=== PATIENT | male | born 1960 | race Caucasian/White ===

== ENCOUNTER 2018-10-05 11:14 | Emergency (ER) | payer OTHER ==
[2018-10-05 11:19] VITALS: BP 144/76; PULSE 78; RESP 18; TEMP 98.2
[2018-10-05] MEDS ORDERED: CIPROFLOXACIN-DEXAMETH 0.3-0.1% DROPS 7.5 ML BTL RIGHT EAR STA (11:54)
--- NOTE | 2018-10-05 11:57 | ED ---
ENT HPI - General Chief complaint: ENT Stated complaint: bleeding from rt ear Time Seen by Provider: 10/05/18 11:29 Source: patient, RN notes reviewed Mode of arrival: ambulatory Limitations: no limitations - History of Present Illness Initial comments: [id number] male presents emergency Department chief complaint of bleeding from right ear canal. Patient states his started yesterday was seen at [facility] and was advised that started bleeding again to come to [facility] for hearing. Patient states he has swab soaps morning. He states it they cauterized his ear canals silver nitrate. He states it is sore now. He was not given any eardrops for this. Patient denies any headache, dizziness, fever or chills. Patient did have recent URI symptoms. - Related Data Allergies Allergy/AdvReac Type Severity Reaction Status Date / Time No Known Allergies Allergy Verified 10/05/18 11:19 Review of Systems ROS Statement: Those systems with pertinent positive or pertinent negative responses have been documented in the HPI. ROS Other: All systems not noted in ROS Statement are negative. Past Medical History Past Medical History: Atrial Fibrillation, Asthma, COPD, Renal Disease Additional Past Medical History / Comment(s): chronic pain History of Any Multi-Drug Resistant Organisms: None Reported Past Surgical History: Appendectomy, Orthopedic Surgery, Tonsillectomy Past Psychological History: No Psychological Hx Reported Smoking Status: Current every day smoker Past Alcohol Use History: Rare Past Drug Use History: Marijuana General Exam Limitations: no limitations General appearance: alert, in no apparent distress Head exam: Present: atraumatic, normocephalic, normal inspection Eye exam: Present: normal appearance, PERRL, EOMI. Absent: scleral icterus, conjunctival injection, periorbital swelling ENT exam: Present: normal oropharynx, mucous membranes moist, TM's normal bilaterally. Absent: normal external ear exam (Right ear canal is swollen, exudates and dry blood noted) Neck exam: Present: normal inspection, full ROM. Absent: tenderness, meningismus, lymphadenopathy Respiratory exam: Present: normal lung sounds bilaterally. Absent: respiratory distress, wheezes, rales, rhonchi, stridor Cardiovascular Exam: Present: regular rate, normal rhythm, normal heart sounds. Absent: systolic murmur, diastolic murmur, rubs, gallop, clicks Course Vital Signs 10/05/18 11:17 Temperature 98.2 F Pulse Rate 78 Respiratory 18 Rate Blood Pressure 144/76 O2 Sat by Pulse 98 Oximetry Medical Decision Making - Medical Decision Making 50-year-old male present emergency from for right ear canal bleeding. There is no obvious source as is dry blood. Patient does have multiple open areas in his ear canal and concern for developing infection related to silver nitrate. Patient will be given eardrops and follow-up with ENT on Sunday. Disposition Clinical Impression: Otitis externa, Bleeding from right ear Disposition: HOME SELF-CARE Condition: Stable Instructions (If sedation given, give patient instructions): Earache (ED) Additional Instructions: Follow-up with ENT on Sunday.continue eardrops 4 drops to the right ear canal twice daily Please return to the Emergency Department if symptoms worsen or any other concerns. Is patient prescribed a controlled substance at d/c from ED?: No Referrals: Rubin Land NPC [Primary Care Provider] - 1-2 days Wicho Duron MD [STAFF PHYSICIAN] - 1-2 days Time of Disposition: 11:57
== END 2018-10-05 12:35 | disposition home or self-care (01) ==
LOC: EC 11:14
DX: H60.91 Unspecified otitis externa, right ear (principal); H92.21 Otorrhagia, right ear; F17.200 Nicotine dependence, unspecified, uncomplicated
CPT/HCPCS: 99282

== ENCOUNTER → 2021-03-08 | Outpatient (CLI) | payer OTHER ==
--- NOTE | 2021-03-08 13:53 | CT ---
EXAMINATION TYPE: CT cervical spine wo con DATE OF EXAM: 03/08/2021 COMPARISON: None HISTORY: neck pain post injury CT DLP: 376.7 mGycm CONTRAST: CT of the cervical spine is performed in the axial plane at 2 mm thick sections. Reconstructed image s in the coronal, and sagittal plane are reviewed on the computer. No acute fractures are evident. Vertebral body alignment is normal. Diffuse disc space narrowing is present. C5-6 loss of disc height is present. Vertebral body heights are preserved. There is some central disc bulging C4-5 with moderate anterior thecal sac compression. Some cord cont act is not excluded. Consider MRI for additional evaluation. Spinal canal stenosis not felt to be pre sent. Uncovertebral joint hypertrophy is present. This is contributing to severe left foraminal stenosis at C4-5 and C5-6. Mild right foraminal stenosis at C5-6 is present. Note is made of bilateral carotid artery calcifications. Emphysematous changes at the lung apices. IMPRESSIONS: 1. No acute osseous abnormality cervical spine. 2. Suspected disc bulging C4-5 with moderate anterior thecal sac compression. Consider MRI for additi onal evaluation. 3. Uncovertebral joint hypertrophy contributing to foraminal stenosis.
== END | disposition home or self-care (01) ==
LOC: RADCTMAIN 09:22
PROVIDERS: ATTEND Nurse Practitioner Acute Care
DX: M99.71 Connective tissue and disc stenosis of intervertebral foramina of cervical region (principal); M89.38 Hypertrophy of bone, other site
CPT/HCPCS: 72125